=== PATIENT | male | born 1950 | race Hispanic/Latino ===

== ENCOUNTER 2016-08-26 06:25 | Day surgery (SDC) | payer BC, MEDICARE ==
[2016-06-14 10:30] VITALS: BMI 38.7
[2016-08-26 07:25] VITALS: BP 166/74; PULSE 60; RESP 18; TEMP 97.7; O2SAT 97
[2016-08-26 07:47] LABS: CALCIUM 8.4 mg/dl (8.6-10.4)
[2016-08-26 08:06] LABS: INR 0.9; PROTHROMBIN TIME 10.2 SECONDS (9.7-12.2)
[2016-08-26] MEDS ORDERED: Sodium Chloride 0.9% 500 ML IV ONE (10:45)
[2016-08-26] MEDS ORDERED: Midazolam 2 MG/2 ML VIAL ONE (10:46)
[2016-08-26] MEDS ORDERED: Propofol 10 mg/ml Inj (20 ML) ONE (10:46)
[2016-08-26] MEDS ORDERED: Iohexol 240 (50 ml) ONE (10:50)
[2016-08-26] MEDS ORDERED: cefTRIAXone IV 1 gm in Dextros 50 ML IVPB ONE (10:50)
[2016-08-26] MEDS ORDERED: Lidocaine 2% Jelly (Uro-Jet) ONE (10:50)
[2016-08-26] MEDS ORDERED: Sodium Chloride 0.9% 250 ML IV ONE (11:48)
[2016-08-26] MEDS ORDERED: HYDROmorphone 0.5 mg/0.5 ml ISec IVP PRN (11:52)
--- NOTE | 2016-08-26 11:59 | PCM.SURG1 ---
Surgeon's Initial Post Op Note - Surgeon's Notes Surgeon: yazmin devi Policy Intern: none Pre-Operative Diagnosis: hematuria Operative Findings: same, bph, retention, urethral stricture, bladder stone Post-Operative Diagnosis: same Operation Performed: cysto, optical int urethrotomy. bilat rtg pyelogram, removal of bladder stone,. bladder bx and fulguration. cystogram Specimen/Specimens Removed: urine, bladder bx Estimated Blood Loss: EBL {In ML}: 10 Blood Products Given: N/A Post-Op Condition: Good Date of Surgery/Procedure: 08/26/16 Time of Surgery/Procedure: 11:59
--- NOTE | 2016-08-26 17:06 | RAD ---
PROCEDURE: Intraoperative Fluoroscopy. HISTORY: Hematuria FINDINGS: Fluoroscopic assistance was provided for retrograde study. Please fluoroscopic time (continuous mode) utilized during the procedure: 7.8 seconds.
--- NOTE | 2016-08-26 17:07 | RAD ---
HISTORY: Hematuria COMPARISON: No prior. FINDINGS: BOWEL: Normal. No obstruction. No free air. BONES: Normal. OTHER FINDINGS: None. IMPRESSION: No significant or acute findings to account for/ related to the clinical presentation.
== END 2016-08-26 14:51 | disposition home or self-care (01) ==
LOC: C.SDS 06:25
PROVIDERS: ATTEND Urology
DX: N30.81 Other cystitis with hematuria (principal); N21.0 Calculus in bladder; N40.1 Benign prostatic hyperplasia with lower urinary tract symptoms; R33.8 Other retention of urine; N35.9 Urethral stricture, unspecified; N13.5 Crossing vessel and stricture of ureter without hydronephrosis
CPT/HCPCS: 36415; 52224; 52275; 74000; 80048; 82365; 82948; 85610; 85730; 87086; 88104; 88300; 88305; J0696; J7040; Q9966